=== PATIENT | female | born 1980 | race African-American/Black ===

== ENCOUNTER 2018-08-18 06:56 | Emergency (ER) | payer OTHER ==
[~2018-08-18] VITALS: Ht 154.9 cm; Wt 73.9 kg
[~2018-08-18 06:56] MED LIST: AUGMENTIN 875875 MG; FLEXERIL PO; GLUCOPHAGE XR500 MG PO; NAPROSYN500 MG PO; PRENATAL COMPL1 EACH PO; ULTRAM 50MG TAB50 MG PO
[2018-08-18 06:59] VITALS: BP 137/100
[2018-08-18] MEDS ORDERED: IRON325 PO (07:05)
[2018-08-18] MEDS ORDERED: SUDAFED 12 HOU120 MG PO (08:02)
[2018-08-18] MEDS ORDERED: MUCINEX DM ER1 EACH PO (08:02)
== END 2018-08-18 08:00 | disposition home or self-care (01) ==
LOC: ER 06:56
DX: J06.9 Acute upper respiratory infection, unspecified (principal); Z88.6 Allergy status to analgesic agent; Z88.8 Allergy status to other drugs, medicaments and biological substances

== ENCOUNTER 2020-07-24 23:55 | Emergency (ER) | payer OTHER ==
[~2020-07-24] VITALS: Ht 154.9 cm; Wt 87.1 kg
[~2020-07-24 23:55] MED LIST changes: +IRON325 PO; +MUCINEX DM ER1 EACH PO; +SUDAFED 12 HOU120 MG PO
[2020-07-25 02:22] VITALS: BP 164/104
== END 2020-07-25 02:23 | disposition home or self-care (01) ==
LOC: ER 23:55
DX: R20.2 Paresthesia of skin (principal); Z79.899 Other long term (current) drug therapy; Z88.8 Allergy status to other drugs, medicaments and biological substances

== ENCOUNTER 2021-09-22 20:46 | Emergency (ER) | payer OTHER ==
[~2021-09-22] VITALS: Ht 154.9 cm; Wt 88.5 kg
[2021-09-22] MEDS ORDERED: MECLIZINE HCL25 M1 PO (23:04)
[2021-09-22 23:10] VITALS: BP 140/80
== END 2021-09-22 23:10 | disposition home or self-care (01) ==
LOC: ER 20:46
DX: R42 Dizziness and giddiness (principal); F12.90 Cannabis use, unspecified, uncomplicated; Z98.890 Other specified postprocedural states; Z79.899 Other long term (current) drug therapy